=== PATIENT | male | born 1980 | race Caucasian/White ===

== ENCOUNTER 2017-07-26 11:55 | Emergency (ER) | payer BC ==
[~2017-07-26] VITALS: Ht 175.3 cm; Wt 106.1 kg
[~2017-07-26 11:55] MED LIST: ATOR40TA; BUSP10 PO; Celexa20 MG; Ciloxan5 ML LEFTEYE; DIAZ5 PO; ERYT1OIN RIGHTEYE; ESCI20; ESCI20 PO; ESCITALOPRAM OX10 MG PO; Flonase 0.05% N16 GM; Flovent Diskus50 MCG IH; HYDACE10B; HYDMOR2 PO; IBUP800 PO; METF500 PO; Omeprazole20 M1 PO; PENVK500 PO; Percocet 5-3251 EACH PO; ROSU10TA PO; SERT100 PO; TESTONE CI200 MG/1 M
[2017-07-26 12:28] LABS: Source, Urine Voided
[2017-07-26 12:31] LABS: Bilirubin, Urine Neg (Neg); Blood, Urine 3+ (Neg); Glucose Qualitative, Urine Neg (Neg); Ketones, Urine Neg (Neg); Leukocyte Esterase, Urine 1+ (Neg); Nitrite, Urine Neg (Neg); Protein, Urine 1+ (Neg); Urobilinogen, Urine 1+ (Normal)
[2017-07-26 12:38] LABS: Appearance, Urine Clear (Clear); Color, Urine Yellow (P-Yellow)
[2017-07-26 12:40] LABS: Amorphous Heavy (0-Heavy); Bacteria Not Seen /hpf; Granular Casts 0-2 /lpf (0); Red Blood Cells, Urine 25-50 /hpf (0-2); Squamous Epithelial Cells Not Seen /hpf (Few); White Blood Cells, Urine 0-2 /hpf (0-5)
[2017-07-26] MEDS ORDERED: KETO10 PO (13:35)
[2017-07-26] MEDS ORDERED: LEVFLO500 PO (13:35)
== END 2017-07-26 13:39 | disposition home or self-care (01) ==
LOC: ER 11:55
PROVIDERS: Nurse Practitioner Family
DX: N50.89 Other specified disorders of the male genital organs (principal); E11.9 Type 2 diabetes mellitus without complications; E78.5 Hyperlipidemia, unspecified; Z79.899 Other long term (current) drug therapy; Z79.84 Long term (current) use of oral hypoglycemic drugs; Z87.891 Personal history of nicotine dependence
CPT/HCPCS: 76870; 81001; 87086; 96372; 99284; J1885

== ENCOUNTER 2017-08-23 08:50 | Emergency (ER) | payer BC ==
[~2017-08-23] VITALS: Ht 175.3 cm; Wt 106.6 kg
[~2017-08-23 08:50] MED LIST changes: +KETO10 PO; +LEVFLO500 PO
[2017-08-23] MEDS ORDERED: MONT10T (09:05)
[2017-08-23 09:13] LABS: BASOPHILS ABSOLUTE AUTO 0.02 K/mm3 (0.00-0.23); BASOPHILS PERCENT AUTO 0 % (0-2); EOSINOPHILS ABSOLUTE AUTO 0.14 K/mm3 (0.00-0.68); EOSINOPHILS PERCENT AUTO 2 % (0-6); Hematocrit 48.8 % (37.0-53.0); Hemoglobin 16.2 g/dL (13.5-17.5); IMMATURE GRAN ABSOLUTE AUTO 0.02 K/mm3 (0.00-0.10); IMMATURE GRAN PERCENT AUTO 0 % (0-1); LYMPHOCYTES ABSOLUTE AUTO 1.81 K/mm3 (0.84-5.20); LYMPHOCYTES PERCENT AUTO 28 % (21-46); MONOCYTES ABSOLUTE AUTO 0.53 K/mm3 (0.16-1.47); MONOCYTES PERCENT AUTO 8 % (4-13); Mean Corpuscular HGB 28.3 pg (26.0-34.0); Mean Corpuscular HGB Conc 33.2 g/dL (31.5-36.5); Mean Corpuscular Volume 85 fL (80-100); NEUTROPHILS ABSOLUTE AUTO 3.97 K/mm3 (1.96-9.15); NEUTROPHILS PERCENT AUTO 61 % (41-73); Platelet Count 163 K/mm3 (150-400); RDW Coefficient Variation 12.7 % (11.7-14.2); RDW Standard Deviation 39.5 fL (35.1-46.3); Red Blood Cell Count 5.73 M/mm3 (4.30-5.90); White Blood Cell Count 6.49 K/mm3 (4.00-11.30)
[2017-08-23 09:30] LABS: Anion Gap 8 mmol/L (6-16); Blood Urea Nitrogen 22 mg/dL (8-24); Bun/Creatinine Ratio 23.3 (12.0-20.0); CO2, Blood 26 mmol/L (21-32); Calcium, Blood 8.9 mg/dL (8.5-10.1); Chloride, Blood 106 mmol/L (98-108); Creatinine, Blood 0.95 mg/dL (0.60-1.20); Glomerular Filtration Rate >60 (60-); Glucose, Blood 148 mg/dL (70-99); Potassium, Blood 4.3 mmol/L (3.5-5.5); Sodium, Blood 140 mmol/L (136-145)
[2017-08-23] MEDS ORDERED: HYDR1TAB94 PO (10:46)
[2017-08-23] MEDS ORDERED: KETO10 PO (10:46)
[2017-08-23] MEDS ORDERED: Zofran4 MG PO (10:46)
[2017-08-24] MEDS ORDERED: OXYC1TAB11 PO (00:53)
[2017-08-24] MEDS ORDERED: Flomax0.4 MG PO (00:53)
== END 2017-08-23 10:55 | disposition home or self-care (01) ==
LOC: ER 08:50
PROVIDERS: Emergency Medicine
DX: N13.2 Hydronephrosis with renal and ureteral calculous obstruction (principal); Z79.899 Other long term (current) drug therapy; Z79.84 Long term (current) use of oral hypoglycemic drugs; Z87.891 Personal history of nicotine dependence
CPT/HCPCS: 36415; 74176; 80048; 85025; 96361; 96374; 96375; 96376; 99284; J1170; J1885; J2405; J7030

== ENCOUNTER 2017-08-23 22:23 | Emergency (ER) | payer BC ==
[~2017-08-23] VITALS: Ht 175.3 cm; Wt 106.6 kg
[~2017-08-23 22:23] MED LIST changes: +HYDR1TAB94 PO; +MONT10T; +Zofran4 MG PO
[2017-08-23 22:57] LABS: Source, Urine Catheter
[2017-08-23 23:02] LABS: Bilirubin, Urine Neg (Neg); Blood, Urine 4+ (Neg); Glucose Qualitative, Urine Neg (Neg); Ketones, Urine Neg (Neg); Leukocyte Esterase, Urine 1+ (Neg); Nitrite, Urine Neg (Neg); Protein, Urine 1+ (Neg); Urobilinogen, Urine NORM (Normal)
[2017-08-23 23:07] LABS: Appearance, Urine Hazy (Clear); Color, Urine Yellow (P-Yellow)
[2017-08-23 23:08] LABS: Bacteria Few /hpf; Mucus Light (0-Heavy); Red Blood Cells, Urine 25-50 /hpf (0-2); Squamous Epithelial Cells Rare /hpf (Few)
[2017-08-24] MEDS ORDERED: OXYC1TAB11 PO (00:53)
[2017-08-24] MEDS ORDERED: Flomax0.4 MG PO (00:53)
== END 2017-08-24 01:00 | disposition home or self-care (01) ==
LOC: ER 22:23
PROVIDERS: Emergency Medicine
DX: N13.2 Hydronephrosis with renal and ureteral calculous obstruction (principal); Z79.899 Other long term (current) drug therapy; Z79.84 Long term (current) use of oral hypoglycemic drugs; Z87.442 Personal history of urinary calculi; Z87.891 Personal history of nicotine dependence
CPT/HCPCS: 36415; 74176; 80048; 81001; 85025; 87086; 96361; 96374; 96375; 96376; 99284; J1170; J1885; J2405; J7030

== ENCOUNTER → 2018-07-02 | Outpatient (CLI) | payer SELFPAY ==
[~2018-07-02] MED LIST changes: +Flomax0.4 MG PO; +OXYC1TAB11 PO
[2018-07-03 13:30] LABS: Stool Occult Bld Immuno 1 Negative (NEGATIVE)
== END | disposition home or self-care (01) ==
LOC: LAB 15:15 → LAB SHORT 15:15
PROVIDERS: Physician Assistant Medical
DX: Z13.811 Encounter for screening for lower gastrointestinal disorder (principal); N40.0 Benign prostatic hyperplasia without lower urinary tract symptoms; E29.1 Testicular hypofunction; E78.2 Mixed hyperlipidemia; D64.9 Anemia, unspecified; N42.89 Other specified disorders of prostate; R73.09 Other abnormal glucose; R53.83 Other fatigue
CPT/HCPCS: 82274

== ENCOUNTER 2019-06-10 06:13 | Day surgery (SDC) | payer BC, OTHER ==
[~2019-06-10] VITALS: Ht 175.3 cm; Wt 91.1 kg
[~2019-06-10 06:13] MED LIST changes: -ATOR40TA; +ATOR40TA PO; +Bupropion Xl150 MG PO; +METF500C PO; -MONT10T; +MONT10T PO; +Testostero100 MG/1 M IM
--- NOTE | 2019-06-10 13:05 | NUR ---
06/10/19 Shira5 Elaine Mckee STATES PAIN DOWN TO 2/10 AFTER FENTANYL 25 MCG IV REMAINS AWAKE ALERT RESP UNLABORED
== END 2019-06-10 13:22 | disposition home or self-care (01) ==
LOC: ORSCSDS 06:13
PROVIDERS: Otolaryngology
PROC: 09DU4ZZ Extraction of Right Ethmoid Sinus, Percutaneous Endoscopic Approach (ICD-10-PCS; principal; 2019-06-10 07:30)
PROC: 09DV4ZZ Extraction of Left Ethmoid Sinus, Percutaneous Endoscopic Approach (ICD-10-PCS; principal; 2019-06-10 07:30)
PROC: 8E09XBZ Computer Assisted Procedure of Head and Neck Region (ICD-10-PCS; principal; 2019-06-10 07:30)
PROC: 09SM4ZZ Reposition Nasal Septum, Percutaneous Endoscopic Approach (ICD-10-PCS; principal; 2019-06-10 07:30)
DX: J32.4 Chronic pansinusitis (principal); J34.2 Deviated nasal septum; E11.9 Type 2 diabetes mellitus without complications; G47.33 Obstructive sleep apnea (adult) (pediatric); K21.9 Gastro-esophageal reflux disease without esophagitis; Z79.899 Other long term (current) drug therapy
CPT/HCPCS: 82947; 88305; 88311; C2625; J1100; J2250; J2405; J2704; J2765; J3010; J3301; J7120